=== PATIENT | male | born 1965 | race Caucasian/White ===

== ENCOUNTER 2024-06-10 13:59 | Emergency (ER) | payer MEDICAID, OTHER, SELFPAY ==
[2024-06-10 14:08] VITALS: BP 148/101; PULSE 60; RESP 16; TEMP 36.4; O2SAT 99; BMI 27.8
--- NOTE | 2024-06-10 14:19 | DI.CT.S_ITS ---
PROCEDURE: CT HEAD/BRAIN WO CON INDICATIONS: head injury TECHNIQUE: Noncontrast 4.5 mm thick angled axial sections acquired from the foramen magnum to the vertex, with coronal and sagittal reformats. For radiation dose reduction, the following was used: automated exposure control, adjustment of mA and/or kV according to patient size. COMPARISON: None. FINDINGS: Image quality: Diagnostic. CSF spaces: Basal cisterns are patent. No extra-axial fluid collections. Ventricles are normal in size and shape. Brain: No midline shift. No intracranial masses or hemorrhage. Steven-white matter interface is normal. Skull and face: A soft tissue laceration overlies the right frontal bone. No subgaleal hematoma or underlying calvarial injury. Calvarium and visualized facial bones are intact, without suspicious lesions. Sinuses: Visualized sinuses and mastoids are clear. IMPRESSION: Right frontal soft tissue laceration. No underlying subgaleal hematoma, calvarial injury, or acute intracranial findings. Dictated by: Yolanda Ro M.D. on 06/10/2024 at 15:03 Approved by: Yolanda Ro M.D. on 06/10/2024 at 15:06
[2024-06-10] MEDS: ACETAMINOPHEN 325 MG TABLET 975 MG PO (14:27)
--- NOTE | 2024-06-10 15:07 | ED.HEATRA ---
HPI - Head Injury <Alice Christianson PA-C - Last Filed: 06/10/24 15:25> General Chief complaint: Head Injury Stated complaint: head injury, laceration Time Seen by Provider: 06/10/24 14:11 History of Present Illness HPI Narrative: 59-year-old male with past medical history diabetes, hypertension presents to the ED status post a head injury sustained just prior to arrival. Patient states that he was working on his mother's house, when he walked into a piece of wood under the deck. Patient states that the impact stunned him, he fell to the floor. He is unsure if he lost consciousness, however states he was able to stand up and walk unassisted right after. Patient is not on blood thinners. Denies nausea, vomiting. No chest pain, shortness of breath, lightheadedness or dizziness leading up to to the injury. Tetanus is up-to-date. Review of Systems <Alice Christianson PA-C - Last Filed: 06/10/24 15:25> Constitutional Constitutional: Denies chills, Denies fatigue, Denies fever(s), Denies frequent falls, Denies lethargy and Denies weakness Eyes Eyes: Denies change in vision, Denies eye discharge, Denies irritation and Denies loss of vision ENT Ears, Nose, Mouth, and Throat: Denies change in voice, Denies dizziness, Denies neck pain, Denies sore throat and Denies throat swelling Cardiovascular Cardiovascular: Denies chest pain, Denies irregular heart rhythm, Denies lightheadedness, Denies palpitations, Denies dyspnea, Denies dyspnea on exertion and Denies orthopnea Respiratory Respiratory: Denies cough, Denies dyspnea, Denies dyspnea on exertion and Denies wheezing Gastrointestinal Gastrointestinal: Denies abdominal pain, Denies change in bowel habits, Denies diarrhea, Denies nausea and Denies vomiting Musculoskeletal Musculoskeletal: Denies neck pain and Denies numbness Integumentary/Breasts Skin/Breast: Denies pruritus, Denies erythema, Denies rash and Reports wounds Comments: Scalp laceration Neurologic Neurologic: Denies behavioral changes, Denies confusion, Denies dizziness, Denies frequent falls, Denies loss of vision, Denies numbness and Denies weakness Psychiatric Psychiatric: Denies anxiety, Denies behavioral changes, Denies confusion, Denies depression, Denies homicidal ideation and Denies suicidal ideation Endocrine Endocrine: Denies fatigue, Denies flushing and Denies palpitations Hematologic/Lymphatic Hematologic/Lymphatic: Denies easy bruising Allergic/Immunologic Allergic/Immunologic: Denies urticaria, Denies throat swelling and Denies wheezing Exam <Alice Christianson PA-C - Last Filed: 06/10/24 15:25> Narrative Exam Narrative: Const General:?cooperative, healthy appearing and comfortable [facility] Head:? 4 cm linear laceration in the right frontal scalp. Bleeding controlled with pressure. No underlying structures visualized on exam. No scalp depressions, hematoma Ears:?hearing grossly normal bilaterally Nose:?external nose normal Face and sinus:?normal facial exam and sinuses nontender Mouth:?oral mucosae normal Throat:?posterior oropharynx normal Eyes General:?appearance normal, both eyes and all related structures Neck Neck:?normal visual inspection and no lymphadenopathy noted Resp Effort & Inspection:?normal respiratory effort Auscultation:?clear to auscultation bilaterally Cardio Rate:?regular rate Rhythm:?regular rhythm Neuro General:?patient alert, patient awake and patient oriented x3 Initial Vital Signs Initial Vital Signs: Vital Signs Temperature 97.6 F 06/10/24 14:08 Pulse Rate 60 06/10/24 14:08 Respiratory Rate 16 06/10/24 14:08 Blood Pressure 148/101 H 06/10/24 14:08 Pulse Oximetry 99 06/10/24 14:08 Oxygen Delivery Method Room Air 06/10/24 14:08 <Kiley Garcia MD - Last Filed: 06/10/24 16:42> Initial Vital Signs Initial Vital Signs: Vital Signs Temperature 97.6 F 06/10/24 14:08 Pulse Rate 60 06/10/24 14:08 Respiratory Rate 16 06/10/24 14:08 Blood Pressure 148/101 H 06/10/24 14:08 Pulse Oximetry 99 06/10/24 14:08 Oxygen Delivery Method Room Air 06/10/24 14:08 Procedures <Alice Christianson PA-C - Last Filed: 06/10/24 15:25> Laceration Repair Laceration 1: Site: scalp Side (If applicable): right Size (cm): 4 Description: linear Pre-repair: wound explored, irrigated extensively and deep structures intact Skin layer closed with: jonathan Number of sutures: 5 Course <Alice Christianson PA-C - Last Filed: 06/10/24 15:25> Orders Ordered: ED Orders 06/10/24 14:19 CT head/brain wo con Stat Discontinued Medications Acetaminophen (Acetaminophen 325 Mg Tablet) 975 mg PO NOW ONE Stop: 06/10/24 14:13 Last Admin: 06/10/24 14:27 Dose: 975 mg Documented By: MARILEE Vital Signs Vital signs: Vital Signs - 8 hr 06/10/24 14:08 06/10/24 15:30 Temperature 97.6 F Pulse Rate 60 78 Respiratory Rate 16 18 Blood Pressure 148/101 H 124/77 Pulse Oximetry 99 98 Oxygen Delivery Method Room Air Room Air <Kiley Garcia MD - Last Filed: 06/10/24 16:42> Orders Ordered: ED Orders 06/10/24 14:19 CT head/brain wo con Stat Discontinued Medications Acetaminophen (Acetaminophen 325 Mg Tablet) 975 mg PO NOW ONE Stop: 06/10/24 14:13 Last Admin: 06/10/24 14:27 Dose: 975 mg Documented By: MARILEE Vital Signs Vital signs: Vital Signs - 8 hr 06/10/24 14:08 06/10/24 15:30 Temperature 97.6 F Pulse Rate 60 78 Respiratory Rate 16 18 Blood Pressure 148/101 H 124/77 Pulse Oximetry 99 98 Oxygen Delivery Method Room Air Room Air MDM - Head Injury <Alice Christianson PA-C - Last Filed: 06/10/24 15:25> MDM Narrative Medical decision making narrative: 59-year-old male with past medical history diabetes, hypertension presents to the ED status post a head injury sustained just prior to arrival. Obtained head CT which shows a right frontal soft tissue laceration. No underlying subgaleal hematoma, calvarial injury, or acute intracranial findings on CT. Laceration was repaired with 5 jonathan. Patient given Tylenol for pain. Wound care, staple removal, signs of infection discussed with patient. ED return precautions were discussed with patient. Patient verbalized understanding. Medical records reviewed: Yes Discharge Plan Departure Patient Disposition: Home Clinical Impression: Laceration of scalp Qualifiers: Encounter type: initial encounter Qualified Code(s): S01.01XA - Laceration without foreign body of scalp, initial encounter Instructions: DI for Laceration Repair of the Scalp Activity Restrictions/Additional Instructions: You were evaluated in the ED today for a head injury. The head CT was normal. The scalp laceration was repaired with 5 jonathan. The jonathan will need to be removed in 7 days. You may go to your PCP's office, a walk-in clinic or return to the ED for staple removal. Please watch for signs of infection including worsening redness, swelling, pain, discharge, redness. Return to the ED if you note any signs of infection. May take Tylenol for pain. Stand Alone Forms: Patient Portal/API/Survey ED Sign-out <Kiley Garcia MD - Last Filed: 06/10/24 16:42> Cosign ED Attending Coslaciature Attestation: I did not see this patient. I was available all times for consultation.
[2024-06-10 15:30] VITALS: BP 124/77; PULSE 78; RESP 18; O2SAT 98
== END 2024-06-10 15:31 | disposition home or self-care (01) ==
PROVIDERS: Emergency Provider Student in an Organized Health Care Education/Training Program
DX: S01.01XA Laceration without foreign body of scalp, initial encounter (principal); W22.8XXA Striking against or struck by other objects, initial encounter; Y93.01 Activity, walking, marching and hiking; Y92.007 Garden or yard of unspecified non-institutional (private) residence as the place of occurrence of the external cause
CPT/HCPCS: 12002; 70450; 99283; 99284